=== PATIENT | female | born 1990 | race Caucasian/White ===

== ENCOUNTER 2023-04-11 05:53 | Inpatient (IN) | payer OTHER ==
[~2023-04-11] VITALS: Ht 165.1 cm; Wt 89.8 kg
[2023-04-11] MEDS ORDERED: RINGERS SOLUTION,LACTATED 1,000 ML IV SCH (06:00)
[2023-04-11] MEDS ORDERED: AMPICILLIN SODIUM 2,000 MG VIAL IV ONE (06:00)
[2023-04-11 06:46] LABS: PH,URINE 6.5 (5.0-8.0); URINE APPEARANCE Cloudy; URINE BILIRRUBIN Negative (NEGATIVE); URINE BLOOD Large; URINE COLOR Yellow; URINE GLUCOSE Negative (NEGATIVE); URINE LEUKOCYTE Trace; URINE NITRATE Negative; URINE PROTEIN Negative (NEGATIVE); URINE UROBILINOGEN 0.2 E.U./dl
[2023-04-11 06:50] LABS: URINE BACTERIA 299.8 uL (0.0-1933); URINE EPITHELIAL CELLS 18.7 uL (0.0-38.8); URINE RBC 508.8 uL (0.0-20.8); URINE WBC 31.6 uL (0.0-23.2)
[2023-04-11 06:52] LABS: HEMOGLOBIN 12.8 g/dL (12.0-15.00); MEAN CELL VOLUME 85.4 fL (80.00-100.00); MEAN CORPUSCULAR HEMOGLOBIN 28.7 pg (27.00-32.0); MEAN CORPUSCULAR HGB CONC 33.6 g/dl (32.0-36.0); PLATELET COUNT 207 K/uL (150-450); RED BLOOD COUNT 4.45 M/uL (4.00-6.00); RED CELL DISTRIBUTION WIDTH 14.8 % (11.5-14.5)
[2023-04-11] MEDS ORDERED: CHLORHEXIDINE GLUCONATE 120 ML BOTTLE TOP ONE (07:35)
[2023-04-11] MEDS ORDERED: ERYTHROMYCIN BASE 1 GM TUBE OP ONE (07:35)
[2023-04-11] MEDS ORDERED: OXYTOCIN 20 UNITS/1000ML RL PIGGYBAG IV ONE (07:35)
[2023-04-11] MEDS ORDERED: LIDOCAINE HCL 1% 200MG/20ML VIAL IJ SCH (08:15)
[2023-04-11] MEDS ORDERED: ACETAMINOPHEN 500 MG GEL..CAP PO PRN (08:15)
[2023-04-11] MEDS ORDERED: OXYTOCIN 1,000 ML IV SCH (08:15)
[2023-04-11] MEDS ORDERED: CHLORHEXIDINE GLUCONATE 120 ML BOTTLE TP SCH (08:15)
[2023-04-11] MEDS ORDERED: ERYTHROMYCIN BASE 1 GM TUBE OP SCH (08:15)
[2023-04-11] MEDS ORDERED: PNV,CALCIUM 72/IRON/FOLIC ACID 1 TAB TABLET PO SCH (09:00)
[2023-04-11] MEDS ORDERED: AMPICILLIN SODIUM 1,000 MG VIAL IV SCH (09:00)
[2023-04-11] MEDS ORDERED: PRENATAL + DHA1 EAC1 PO (09:33)
[2023-04-11 14:55] LABS: HEMATOCRIT 36.6 % (36.0-45.00); HEMOGLOBIN 12.2 g/dL (12.0-15.00); MEAN CELL VOLUME 83.3 fL (80.00-100.00); MEAN CORPUSCULAR HEMOGLOBIN 27.8 pg (27.00-32.0); MEAN CORPUSCULAR HGB CONC 33.4 g/dl (32.0-36.0); PLATELET COUNT 202 K/uL (150-450); RED BLOOD COUNT 4.39 M/uL (4.00-6.00); RED CELL DISTRIBUTION WIDTH 14.9 % (11.5-14.5)
== END 2023-04-13 13:21 | disposition home or self-care (01) | DRG 807 ==
LOC: OB/GYN 05:53 → LDR 05:53 → OB/GYN 08:32
PROVIDERS: ADMIT Obstetrics & Gynecology; ATTEND Obstetrics & Gynecology
PROC: 10E0XZZ Delivery of Products of Conception, External Approach (ICD-10-PCS; principal; 2023-04-11)
PROC: 0W8NXZZ Division of Female Perineum, External Approach (ICD-10-PCS; 2023-04-11)
PROC: 4A1HXCZ Monitoring of Products of Conception, Cardiac Rate, External Approach (ICD-10-PCS; 2023-04-11)
DX: O99.824 Streptococcus B carrier state complicating childbirth (principal); Z37.0 Single live birth; Z3A.38 38 weeks gestation of pregnancy; Z20.822 Contact with and (suspected) exposure to COVID-19